=== PATIENT | male | born 1965 | race Caucasian/White ===

== ENCOUNTER 2021-08-02 09:50 | Inpatient (IN) | payer OTHER ==
[~2021-08-02] VITALS: Ht 170.2 cm; Wt 81.6 kg
[2021-08-02 10:47] LABS: BASOPHILS % 0.4 % (0.0-2.0); EOSINOPHILS % 0.4 % (0.0-5.0); HEMATOCRIT. 45.4 % (42.0-52.0); HEMOGLOBIN. 15.4 g/dL (14.0-18.0); MEAN CORPUSCULAR VOLUME 85.2 fL (80.0-94.0); MEAN PLATELET VOLUME 7.8 fl (7.4-10.4); MONOCYTES % 5.3 % (2.0-8.0); NEUTROPHILS % 78.9 % (40.0-76.0); PLATELET 234 x1000/uL (130-400); RED BLOOD CELL COUNT 5.33 mill/uL (4.7-6.1); RED CELL DISTRIBUTION WIDTH 13.5 % (11.6-14.6)
[2021-08-02 10:53] LABS: CHLORIDE 105 mEq/L (98-107)
[2021-08-02 11:03] LABS: ETHANOL BLOOD < 10 mg/dL
[2021-08-02] MEDS ORDERED: CLONIDINE 0.1MG TABLET PO PRN (13:15)
[2021-08-02] MEDS ORDERED: ONDANSETRON HCL 4MG/2ML INJ IV PRN (13:15)
[2021-08-02] MEDS ORDERED: LORAZEPAM 0.5MG TABLET PO PRN (13:15)
[2021-08-02] MEDS ORDERED: ACETAMINOPHEN 325MG TABLET PO PRN ×2 (13:15)
[2021-08-02] MEDS ORDERED: DOCUSATE SODIUM 100MG CAPSULE PO PRN (13:15)
[2021-08-02] MEDS ORDERED: HYDROCODONE/ACETAMINOPHEN 5/325MG TABLET PO PRN (13:15)
[2021-08-02] MEDS ORDERED: IPRATROPIUM/ALBUTEROL 0.5-3(2.5)MG/3ML NEB HHN PRN (13:15)
[2021-08-02] MEDS ORDERED: NALOXONE HCL 0.4MG/ML VIAL IV PRN (13:30)
[2021-08-02 16:00] VITALS: BP 136/83
[2021-08-02 16:26] VITALS: BP 130/81
[2021-08-02] MEDS ORDERED: IOHEXOL-350 100 ML BOTTLE ONE (18:52)
[2021-08-02 20:00] VITALS: BP 125/78
[2021-08-03] VITALS: BP 129/67
[2021-08-03 04:00] VITALS: BP 110/71
[2021-08-03 08:00] VITALS: BP 116/75
[2021-08-03 10:04] LABS: CHLORIDE 106 mEq/L (98-107)
[2021-08-03] MEDS ORDERED: ATOR20TA PO (11:14)
[2021-08-03] MEDS ORDERED: ASPI-1406 MT (11:14)
[2021-08-03] MEDS ORDERED: ASPIRIN 81MG TABLET PO SCH (11:15)
[2021-08-03 11:18] VITALS: BP 116/75
[2021-08-03] MEDS ORDERED: ATORVASTATIN CALCIUM 20MG TABLET PO SCH (21:00)
== END 2021-08-03 13:50 | disposition home or self-care (01) | DRG 47 ==
LOC: ER 10:09 → 7WST 12:39 → ENRESERV 13:19
PROVIDERS: ADMIT Internal Medicine; ATTEND Internal Medicine
DX: G45.9 Transient cerebral ischemic attack, unspecified (principal); E11.9 Type 2 diabetes mellitus without complications; I10 Essential (primary) hypertension; E78.5 Hyperlipidemia, unspecified; J98.11 Atelectasis; Z79.82 Long term (current) use of aspirin; Z86.73 Personal history of transient ischemic attack (TIA), and cerebral infarction without residual deficits; Z79.899 Other long term (current) drug therapy
CPT/HCPCS: 36415; 70496; 70498; 70551; 71045; 80048; 80053; 80061; 80320; 83036; 84443; 84484; 85025; 93005; 99285; Q9967; G0480